=== PATIENT | male | born 1965 | race Caucasian/White ===

== ENCOUNTER 2020-07-07 17:28 | Emergency (ER) | payer OTHER, SELFPAY ==
[2020-07-07 17:57] VITALS: BP 163/94; PULSE 93; RESP 16; TEMP 36.8; O2SAT 98; BMI 34.2
[2020-07-07] MEDS: TET,DIPH,PERTUSS(ACELL),VAC/PF 0.5 ML SYRINGE IM (18:05)
--- NOTE | 2020-07-07 18:06 | ED_ITS ---
HPI - Extremity Injury (Lower) General Chief Complaint: Extremity Injury, Lower Stated Complaint: LACERATION ON LT KNEE Time Seen by Provider: 07/07/20 17:57 Source: patient Mode of arrival: Ambulatory Limitations: no limitations History of Present Illness HPI Narrative: 55-year-old gentleman with a history of hypertension hyperlipidemia was using a chain saw to cut down some trees the chainsaw slipped and cut into his left leg. Fortunately majority of the injury was to his multiple layers of clothing any has a minor superficial cut to the knee only. Related Data Allergies Allergy/AdvReac Type Severity Reaction Status Date / Time Penicillins Allergy Verified 07/07/20 18:02 Review of Systems Review of Systems Narrative: Pertinent positive and negative findings as per HPI Remainder of review of systems is otherwise unremarkable for Constitutional: Fevers, chills, weakness ENT: No sore throat, neck pain, ear pain CV: Chest pain, palpitations, dyspnea on exertion Respiratory: Cough, wheeze, dyspnea GI: Nausea, vomiting, diarrhea, Patient History Medical History (Updated 07/07/20 @ 18:10 by Crystal Flores MD) Hyperlipidemia Hypertension Social History Smoking Status: Current every day smoker Smoking Status: Current every day smoker alcohol intake frequency: 0-2 drinks per day Substance Use Type: does not use Exam Narrative Exam Narrative: General: Alert appropriate in no acute distress Respiratory: Able to speak in full sentences, no obvious respiratory distress Skin: No obvious rashes, warm and dry Neurologic: Grossly intact no obvious asymmetries or abnormalities Psych, appropriate insight and affect, cooperative Extremity: Total 4 cm very superficial laceration in 3 small parallel scratches over the left knee. Does not extend through the entire dermal surface. Initial Vital Signs Initial Vital Signs: Vital Signs Temperature 98.3 F 07/07/20 17:57 Pulse Rate 93 H 07/07/20 17:57 Respiratory Rate 16 07/07/20 17:57 Blood Pressure 163/94 H 07/07/20 17:57 Pulse Oximetry 98 07/07/20 17:57 Procedures Laceration Repair Left knee: Site: lower extremity Side (If applicable): left Size (cm): 4 Description: linear Depth: simple, single layer Pre-repair: wound explored Skin layer closed with: steri-strips Course Orders Ordered: Discontinued Medications Diphtheria/Tetanus/Acell Pertussis (Tet,Diph,Pertuss(Acell),Vac/Pf 0.5 Ml Sy ringe) 0.5 ml IM .ONCE ONE Stop: 07/07/20 18:02 Last Admin: 07/07/20 18:05 Dose: 0.5 ml Documented by: JIMENEZ Vital Signs Vital signs: Vital Signs - 8 hr 07/07/20 17:57 Temperature 98.3 F Pulse Rate 93 H Respiratory Rate 16 Blood Pressure 163/94 H Pulse Oximetry 98 MDM - Extremity Injury (Lower) MDM Narrative Medical decision making narrative: 55-year-old gentleman who got jazmin with his chainsaw today and only suffered minor superficial laceration to the left knee. Usually closed with glue and secured with Steri-Strips as it is over an extensor surface. His tetanus status is updated. He is safe for home discharge Discharge Plan Departure Patient Disposition: Home Clinical Impression: Laceration Instructions: DI for Laceration Repair -- Simple, Tetanus, Diphtheria (Td) Vaccine Activity Restrictions/Additional Instructions: Thank you for coming in today. You did a fantastic job in cutting up your pants rather than your skin. The laceration that you have over your left knee was fairly superficial and was easily closed with skin glue. Please do keep an eye out for increasing redness pain or irritation to suggest infection. At this point the wound is clean and at low risk for infection and antibiotics are not indicated Your tetanus status was updated today I wish you well
== END 2020-07-07 18:16 | disposition home or self-care (01) ==
PROVIDERS: Emergency Provider Emergency Medicine
DX: S81.012A Laceration without foreign body, left knee, initial encounter (principal); W29.3XXA Contact with powered garden and outdoor hand tools and machinery, initial encounter; E78.5 Hyperlipidemia, unspecified; I10 Essential (primary) hypertension; Z23 Encounter for immunization
CPT/HCPCS: 90471; 99281; 99283; 90715